=== PATIENT | female | born 1995 | race Caucasian/White ===

== ENCOUNTER → 2016-05-01 | Emergency (ER) | payer SELFPAY ==
[~2016-05-01] VITALS: Ht 167.6 cm; Wt 72.6 kg
[~2016-05-01] MED LIST: TYLENOL EXTRA500 MG ORAL
[2016-05-01 10:48] VITALS: BP 132/72
--- NOTE | 2016-05-01 11:15 | Emergency Room Report ---
History of Present Illness General Chief Complaint: Fever Source: Patient Present Illness HPI 20-year-old female presents ED complaining of cough and bodyaches. States that she had similar symptoms last week. Was told she had bronchitis and was prescribed antibiotics. States symptoms are improving but persisting. Denies any cough at this time. Notes bodyaches. States she had fever last night. Denies earache or sore throat. Denies dysuria or hematuria. No other aggravating relieving factors. Denies any other associated Allergies: Coded Allergies: No Known Allergies (Unverified , 05/01/16) Patient History Past Medical History: none Past Surgical History: none Pertinent Family History: none Social History: Denies: alcohol use, drug use, smoking Last Menstrual Period: last month Now: No Immunizations: UTD Reviewed Nursing Documentation: PMH: Agreed, PSxH: Agreed Nursing Documentation-PMH Past Medical History: No Stated History Review of Systems All Other Systems: negative except mentioned in HPI Physical Exam Vital Signs Date Time Temp Pulse Resp B/P Pulse Ox O2 Delivery O2 Flow Rate FiO2 05/01/16 10:23 98.8 91 18 116/78 97 Room Air Sp02 EP Interpretation: reviewed, normal General Appearance: no apparent distress, alert, GCS 15, non-toxic Head: normocephalic, atraumatic Eyes: bilateral eye PERRL, bilateral eye normal inspection ENT: hearing grossly normal, normal pharynx, no angioedema, normal voice Neck: full range of motion, supple/symm/no masses Respiratory: chest non-tender, lungs clear, normal breath sounds, speaking full sentences Cardiovascular #1: regular rate, rhythm, no edema Cardiovascular #2: 2+ carotid (R), 2+ carotid (L), 2+ radial (R), 2+ radial (L) , 2+ dorsalis pedis (R), 2+ dorsalis pedis (L) Gastrointestinal: normal bowel sounds, non tender, soft, non-distended, no guarding, no rebound Rectal: deferred Genitourinary: normal inspection, no CVA tenderness Musculoskeletal: back normal, gait/station normal, normal range of motion, non- tender Neurologic: alert, oriented x3, responsive, motor strength/tone normal, sensory intact, speech normal Psychiatric: judgement/insight normal, memory normal, mood/affect normal, no suicidal/homicidal ideation Reflexes: 3+ bicep (R), 3+ bicep (L), 3+ tricep (R), 3+ tricep (L), 3+ knee (R) , 3+ knee (L) Skin: normal color, no rash, warm/dry, well hydrated Lymphatic: no adenopathy Medical Decision Making Diagnostic Impression: Primary Impression: Upper respiratory infection Qualified Codes: J06.9 - Acute upper respiratory infection, unspecified ER Course Hospital Course 20-year-old female presents to ED complaining of cough, bodyaches and subjective fiver Differential diagnoses include: URI, pharyngitis, otitis media, asthma Clinical course Patient placed on stretcher. After initial history, physical exam reveals a young female in no acute distress. Bilateral TM unremarkable. No pharyngeal erythema. No tonsillar exudates. No lymphadenopathy. lungs clear. abdomen soft. Clinical findings consistent with URI. Reassurance given. patient is already on antibiotics for treatment of bronchitis. Encourage patient to complete Abx prescription as directed Diagnosis - URI Stable and discharged home with Rx Tylenol. Instructed to followup with PMD. Return to ED if symptoms recur or worsen Last Vital Signs Date Time Temp Pulse Resp B/P Pulse Ox O2 Delivery O2 Flow Rate FiO2 05/01/16 10:48 98.4 88 17 132/72 98 Room Air Status: improved Disposition: HOME, SELF-CARE Condition: Stable Scripts Acetaminophen* (TYLENOL EXTRA STRENGTH*) 500 Mg Tablet 500 MG ORAL Q8H Y for Prn Headache/Temp > 101, #30 TAB 0 Refills Prov: RAMANDEEP MÉNDEZ M.D. 05/01/16 Referrals: NOT CHOSEN IPA/,REFERRING (PCP) Departure Forms: Return to School Return to School On: May 03, 2016 School Release Restrictions: None Patient Instructions: Upper Respiratory Infection, Adult RAMANDEEP MÉNDEZ M.D. May 01, 2016 11:15
== END | disposition home or self-care (01) ==
LOC: EMR 10:37
DX: J06.9 Acute upper respiratory infection, unspecified (principal)
CPT/HCPCS: 99283